=== PATIENT | female | born 1985 | race Caucasian/White ===

== ENCOUNTER 2021-04-29 11:31 | Emergency (ER) | payer OTHER, SELFPAY ==
[2021-04-29 12:12] VITALS: BP 125/74; PULSE 73; RESP 22; TEMP 36.6; O2SAT 99; BMI 30.4
[2021-04-29] MEDS: IBUPROFEN 400 MG TABLET 800 MG PO (12:22)
[2021-04-29] MEDS: OXYCODONE/ACETAMINOPHEN 5/325 TABLET 1 TAB PO (13:35)
[2021-04-29] MEDS: methocarbamoL 500 MG TABLET PO (13:35)
--- NOTE | 2021-04-29 13:48 | ED.BACK ---
HPI - Back Pain/Injury <DAGMAR Varela - Last Filed: 04/29/21 16:59> General Chief Complaint: Back Pain/Injury Stated Complaint: having pain in lower back and hip Time Seen by Provider: 04/29/21 12:59 Source: patient History of Present Illness HPI Narrative: 35-year-old female presents to the emergency department for right low back pain and pain which started approximately 1.5 weeks ago. Patient denies any known injury, she does endorse having previous sciatica and low back pain although this was on the other side but similar in nature. Patient denies dysuria, abdominal pain, nausea or vomiting, fever, weakness, alterations in bowel or bladder continence or any other symptom. She does endorse a couple days ago she had some shooting pain which went down the back of her right buttock and her right posterior leg to her knee. She said this has not happened again. Patient reports not much makes it better, resting is helpful. She has been using Tylenol and Motrin for pain. She has full range of motion of her back without any limitations. Related Data Previous Rx's Medication Instructions Recorded methocarbamol 500 mg tablet 500 mg PO Q8H PRN #20 tab 04/29/21 tramadol 50 mg tablet 50 mg PO DAILY PRN #10 tab 04/29/21 Allergies Allergy/AdvReac Type Severity Reaction Status Date / Time No Known Drug Allergies Allergy Verified 04/29/21 12:16 Review of Systems <DAGMAR Varela - Last Filed: 04/29/21 16:59> Review of Systems Narrative: General: denies fever, chills Head/Neck: denies headache, neck pain Eyes: denies visual changes, eye pain Cardio: denies chest pain, palpitations Respiratory: denies shortness of breath, cough GI: denies abdominal pain, nausea, vomiting, or diarrhea : denies dysuria, hematuria MSK: denies joint pain, muscle weakness, endorses right sided low back pain with occasional shooting down the posterior of her buttocks and the posterior aspect of her right upper leg. Skin: denies rash, itching Neuro: denies numbness, tingling Patient History <DAGMAR Varela - Last Filed: 04/29/21 16:59> Social History Smoking Status: Current every day smoker Smoking Status: Current every day smoker tobacco type: cigarettes alcohol intake frequency: 0-2 drinks per day Substance Use Type: marijuana Exam <DAGMAR Varela - Last Filed: 04/29/21 16:59> Narrative Exam Narrative: Independently reviewed vitals signs and nursing notes. General: Awake, alert, nontoxic, no cardiorespiratory distress Head/Neck: Atraumatic, neck full range of motion Eyes: EOMI, conjunctiva normal Nose: nares patent, no rhinorrhea Mouth/Throat: moist mucus membranes, posterior pharynx normal, no oral lesions Cardio: Regular rate and rhythm, no peripheral edema Respiratory: respirations unlabored without wheezing, stridor, or rales. No retractions. GI: Abdomen soft, nontender MSK: Moves all extremities, neurovascularly intact, left leg straight leg lift exacerbates right sided low back pain, range of motion intact, patient without any weakness to either lower extremity, 5/5 strength and sensation Skin: Normal capillary refill, no rash Neuro: Normal speech and cognition, normal gait Initial Vital Signs Initial Vital Signs: Vital Signs Temperature 97.8 F 04/29/21 12:12 Pulse Rate 73 04/29/21 12:12 Respiratory Rate 22 04/29/21 12:12 Blood Pressure 125/74 04/29/21 12:12 Pulse Oximetry 99 04/29/21 12:12 Course <DAGMAR Vareal - Last Filed: 04/29/21 16:59> Orders Ordered: Discontinued Medications Ibuprofen (Ibuprofen 400 Mg Tablet) 800 mg PO NOW ONE Stop: 04/29/21 12:20 Last Admin: 04/29/21 12:22 Dose: 800 mg Documented by: MONIQUE Methocarbamol (Methocarbamol 500 Mg Tablet) 500 mg PO NOW ONE Stop: 04/29/21 13:28 Last Admin: 04/29/21 13:35 Dose: 500 mg Documented by: MEGHAN Oxycodone/Acetaminophen (Oxycodone/Acetaminophen 5/325 Tablet) 1 tab PO NOW ONE Stop: 04/29/21 13:28 Last Admin: 04/29/21 13:35 Dose: 1 tab Documented by: MEGHAN Vital Signs Vital signs: Vital Signs - 8 hr 04/29/21 12:12 04/29/21 13:58 Temperature 97.8 F Pulse Rate 73 80 Respiratory Rate 22 16 Blood Pressure 125/74 147/95 H Pulse Oximetry 99 99 MDM - Back Pain/Injury <Milena AngeloDAGMAR - Last Filed: 04/29/21 16:59> Lab Data Labs: Point of Care Testing Test Results Negative Urine Dip Bedside Urine Glucose Negative Bedside Urine Bilirubin - Negative Bedside Urine Ketone - Negative Urine Specific Terral 1.015 Bedside Urine Occult Blood - Negative Bedside Urine pH 6.5 Bedside Urine Protein - Negative Bedside Urine Urobilinogen - Negative Bedside Urine Nitrite - Negative Bedside Urine Leukocytes - Negative Esterase MDM Narrative Medical decision making narrative: 35-year-old female presents to the emergency department today for low back pain without known injury for approximately 1 and half weeks. Patient endorses having a sciatica occasionally down the posterior aspect of her right buttock and right upper extremity. Because patient did not have a known injury, and does not exercise or have any recent increase of activity, I did not think an x-ray would be helpful. Patient does not have any lower extremity weakness, numbness, tingling, or sensation changes. Patient understands to follow-up with her primary care provider about this low back pain, her UA was negative as well as her . Her pain was treated with methocarbamol and tramadol, she was given a Percocet here in the emergency department reported great pain relief. Differential includes cauda equina, bulging disc, muscular strain, spinal stenosis, sciatica, rheumatoid arthritis, piriformis syndrome, fibromyalgia. Patient is appropriate and amenable to discharge home. Vital signs are stable on repeat examination is unremarkable. Patient has been informed of results. Patient has been given strict return to ER precautions for any new or worsening symptoms. Patient understands to follow up closely with outpatient providers as instructed. Patient understands plan and agrees to discharge home. All questions and concerns answered at this time. Discharge Plan Departure Patient Disposition: Home Clinical Impression: Strain of lumbar region, Sciatica Instructions: DI for Back Pain With Sciatica, DI for Back Spasm Activity Restrictions/Additional Instructions: *You have been diagnosed with most likely a low back strain causing your hip and low back pain with sciatica. *What to do: *Please continue to take your regular medications as directed. [x ] New medication prescriptions sent to your pharmacy: [[facility] [ ] New medication written as a paper prescription [ ] No new medications given *Please follow up with your primary care provider in 2-3 days, call for an appointment. Let them know you were seen in the Emergency Department and that we ask that you be seen in follow up. We will electronically transmit a record of today's note if your PCP is in our system *If you do not have a primary care provider please contact the [facility] Resource line at [phone]. They will ask some questions about your medical history and help get you set up with a doctor in the community. *Return to Emergency Department if you should have any new, worsening or concerning symptoms, such as [fever greater than 101F, chills, worsening pain, persistent vomiting or other bothersome symptoms] Prescriptions: New methocarbamol 500 mg tablet 500 mg PO Q8H PRN (Reason: back and hip pain) Qty: 20 0RF tramadol 50 mg tablet 50 mg PO DAILY PRN (Reason: pain) Qty: 10 0RF Referrals: Kenn Lainez ARNP [[employer]] - 3-5 days (for follow up)
[2021-04-29 13:58] VITALS: BP 147/95; PULSE 80; RESP 16; O2SAT 99
== END 2021-04-29 14:00 | disposition home or self-care (01) ==
PROVIDERS: Emergency Provider Nurse Practitioner Critical Care Medicine
DX: S39.012A Strain of muscle, fascia and tendon of lower back, initial encounter (principal); M54.41 Lumbago with sciatica, right side; F17.210 Nicotine dependence, cigarettes, uncomplicated; X58.XXXA Exposure to other specified factors, initial encounter
CPT/HCPCS: 81003; 81025; 99283

== ENCOUNTER → 2022-01-16 09:59 | Outpatient (CLI) | payer OTHER, SELFPAY ==
[2022-01-16 13:55] LABS: COVID19 -Nasal RAPID Negative (Negative)
== END ==
PROVIDERS: PCP Nurse Practitioner Family; Referring Provider Orthopaedic Surgery Orthopaedic Surgery of the Spine; Visit Provider Orthopaedic Surgery Orthopaedic Surgery of the Spine
DX: Z20.822 Contact with and (suspected) exposure to COVID-19 (principal)
CPT/HCPCS: 87635; C9803

== ENCOUNTER 2022-01-18 06:22 | Day surgery (SDC) | payer OTHER, SELFPAY ==
[2022-01-09 15:08] VITALS: BMI 31.9
[2022-01-18] VITALS (7 sets, daily range): BP systolic 117–133; BP diastolic 58–87; PULSE 72–104; RESP 14–20; TEMP 36.2–36.6; O2SAT 95–99; BMI 31.9
--- NOTE | 2022-01-18 | DI.RAD.S_ITS ---
PROCEDURE: XR LUMBAR SPINE 2-3V INDICATIONS: L5-S1 MICRODISCECTOMY TECHNIQUE: 3 views of the lumbar spine were acquired. COMPARISON: None. FINDINGS: Bones: 5 [id number] vertebrae are present. There is normal bony alignment. No vertebral body compression fractures. No suspicious bony lesions. Soft tissues: Overlying bowel gas pattern is normal. No suspicious soft tissue calcifications. IMPRESSION: Intraoperative fluoroscopic views during microdiscectomy were performed. Dictated by: Joselito Rodriguez M.D. on 01/18/2022 at 13:34 Approved by: Joselito Rodriguez M.D. on 01/18/2022 at 13:34
[2022-01-18] MEDS: ACETAMINOPHEN 325 MG TABLET 975 MG PO (06:53)
[2022-01-18] MEDS: LACTATED RINGERS 1,000 ML 42 ML IV (07:14)
--- NOTE | 2022-01-18 07:46 | PM.PREOP ---
Pre-operative Note COVID-19 COVID-19 status: Negative Result date/Date tested (Pos, Neg/Pending): 01/17/22 Criteria for continued procedure: Expected advancement of disease process, Possibility delay results in more complex future surgery or treatment, Increased loss of function, Continuing or worsening of significant or severe pain, Deterioration of the patient's condition or overall health and Delay expected to result in less-positive ultimate med/surg outcome Interval Note History & Physical reviewed/Exam performed by Physician: Yes Changes to H&P: No
[2022-01-18] MEDS: CEFAZOLIN 2 GM/100 ML PREMIX 100 ML IV (08:17)
--- NOTE | 2022-01-18 08:31 | SUR.OPER ---
Prone on spine table, head in foam head support, padded chest and pelvic supports, gel pad at knees, lower legs supported by pillows; nipples, genitalia and toes free of pressure, arms secured on foam padded arm boards at <90 degrees abduction. Tape over blanket at thigh secured to table. POSITION APPROVED BY SURGEON AND ANESTHESIA
[2022-01-18] MEDS: BUPIVACAINE 0.5% W/ EPI (PF) 30 ML VIAL INJ (08:35)
--- NOTE | 2022-01-18 08:58 | P.OP_ITS ---
Operative Date/Time/Diagnoses Date of procedure: 01/18/22 Time of procedure: 07:45 Pre-op diagnosis: 1. L5-S1 disc herniation 2. Lumbar radiculopathy Post-op diagnosis: same Procedure & Clinicians Procedure: 1. L5-S1 left microdiscectomy 2. Utilization of microsurgical technique and operating microscope Same procedure as scheduled: Yes Indications: Patient has been having chronic back pain and worsening lumbar radiculopathy. Patient failed multiple conservative management with worsening pain weakness and numbness in her lower extremity. Patient has been having difficulty performing activity of daily living. After discussing risks benefits of treatment options, patient elected proceed with surgery. Surgeon: Betty Grant Supervisor Char House: Charley Fernandes Click Yes if Unassisted: No Anesthesia Type: General Operative Notes Closure Type: primary Specimen(s): none sent Estimated Blood Loss (mL): 5 Blood products transfused: none Procedure in detail: Patient was seen in the preoperative area. Risks and benefits of the surgery was discussed with the patient. Informed consent was obtained from the patient and placed in the chart. Surgical site was marked. Patient was taken to the operative room. General anesthesia was administered. Prophylactic antibiotic was given to the patient less than 30 min before the incision was made. Patient was placed into a prone position on the Abraham table. Patient's back was then prepped and draped in the sterile fashion. Time-out was performed at this time. Using AP and lateral C-arm imaging the interval between L5-S1 was identified and marked on patient's back. A 1 inch incision 1 in from midline was made on the left side. The fascia was incised in line with skin incision. Globus MARS retractors was placed inside the incision and docked onto the L5 lamina. Using microsurgical technique and operating microscope, a 5 laminotomy was performed using a Kerrison rongeur. Liagamentum flavum was resected at the site of the laminotomy. The disc space at L5-S1 was identified. Microdiscectomy was performed by incising the annulus with #11 blade. Microcurettes and pituitary was used to removed herniated disc fragments of disc from the epidural space. After the microdiskectomy was completed, the area medial lateral superior and inferior to the area of the microdiskectomy was inspected and explored using a micro curette. No other impinging structure was identified. The wound was then irrigated with sterile normal saline. 40 mg Depo-Medrol was placed into the epidural space. The deep fascia was closed with 1-0 Vicryl. The subcutaneous tissue was closed with 2-0 Vicryl. The skin was closed with 4-0 Monocryl. Patient tolerated the procedure well. There were no complications. Patient was transferred recovery room in stable condition. Complications: none Post-operative Condition: stable Disposition: PACU Plan for aftercare: Discharge to home
[2022-01-18] MEDS: OXYCODONE IR 5 MG TABLET PO (09:40)
--- NOTE | 2022-01-18 09:46 | SUR.PHASEI ---
Pt A&Ox4, denies any distress, dressing C/D/I and ready to transition to phase 2. Report given to MAYA Hawk using SBAR with time allowed for questions. Will transfer care now.
== END 2022-01-18 10:00 | disposition home or self-care (01) ==
PROVIDERS: PCP Nurse Practitioner Family; Referring Provider Orthopaedic Surgery Orthopaedic Surgery of the Spine; Visit Provider Orthopaedic Surgery Orthopaedic Surgery of the Spine
PROC: (CPT 63030; principal; 2022-01-18 07:45)
DX: M51.17 Intervertebral disc disorders with radiculopathy, lumbosacral region (principal); E66.9 Obesity, unspecified; Z68.31 Body mass index [BMI] 31.0-31.9, adult
CPT/HCPCS: 63030; 72100; 76000; 81025; 82962; J0690; J1100; J2250; J2405; J2704; J2920; J3010